=== PATIENT | male | born 1955 ===

== ENCOUNTER → 2017-02-26 | Outpatient (REF) | payer BC ==
[2017-02-26 19:26] LABS: BLOOD UREA NITROGEN 11 MG/DL (7-18); CREATININE FOR GFR 0.91 MG/DL (0.70-1.30); GLOMERULAR FILTRATION RATE > 60.0 (>49)
== END ==
LOC: M LABDRAW1 17:50
PROVIDERS: ATTEND Orthopaedic Surgery
DX: M25.561 Pain in right knee (principal)